=== PATIENT | male | born 1985 | race Caucasian/White ===

== ENCOUNTER 2020-08-24 01:25 | Emergency (ER) | payer SELFPAY ==
[~2020-08-24] VITALS: Ht 175.3 cm; Wt 70.3 kg
--- NOTE | 2020-08-24 01:25 | NUR ---
PT BIB PD, PREBOOK. TAKEN TO CHAIR A
[2020-08-24 01:33] VITALS: BP 143/95
[2020-08-24 02:05] VITALS: BP 143/95
--- NOTE | 2020-08-24 02:05 | NUR ---
PATIENT BIB [employer]. PATIENT EXAMINED BY DR. DELUCA. PATIENT MEDICALLY CLEARED AND RELEASED IN CUSTODY IN STABLE CONDITION. ORIGINAL PRE-BOOK FORM GIVEN TO OFFICER DIONTE.
== END 2020-08-24 02:05 ==
LOC: MED 01:25
DX: Z02.89 Encounter for other administrative examinations (principal)
CPT/HCPCS: 99283